=== PATIENT | female | born 1985 | race Caucasian/White ===

== ENCOUNTER 2024-01-19 19:23 | Emergency (ER) | payer SELFPAY ==
[~2024-01-19] VITALS: Ht 165.1 cm; Wt 70.3 kg
[2024-01-19 19:30] VITALS: BP_SYST 133; PULSE 77; RESP 18; TEMP 98.7; O2SAT 100
[2024-01-19 21:07] LABS: BASOPHILS # (AUTO) 0.1 K/uL (0.0-0.2); BASOPHILS % (AUTO) 0.7 % (0.0-2.0); EOSINOPHILS # (AUTO) 0.1 K/uL (0.0-0.4); EOSINOPHILS % (AUTO) 1.1 % (0.0-4.0); HEMATOCRIT 40.3 % (36-48); HEMOGLOBIN 13.9 g/dL (12.0-16.0); LYMPHOCYTES # (AUTO) 3.2 K/uL (1.0-5.5); LYMPHOCYTES % (AUTO) 32.4 % (20.5-51.5); MEAN CORPUSCULAR HEMOGLOBIN 29 pg (27-31); MEAN CORPUSCULAR HGB CONC 35 % (32-36); MEAN CORPUSCULAR VOLUME 84 fL (79.0-98.0); MONOCYTES # (AUTO) 0.8 K/uL (0.0-1.0); MONOCYTES % (AUTO) 8.3 % (1.7-9.3); NEUTROPHILS # (AUTO) 5.7 K/uL (1.8-7.7); NEUTROPHILS % (AUTO) 57.5 % (40.0-70.0); PLATELET COUNT (AUTO) 301 K/uL (130-430); RED CELL DISTRIBUTION WIDTH 12.4 % (9.0-15.0); WHITE BLOOD COUNT (AUTO) 9.9 K/uL (4.8-10.8)
[2024-01-19 21:20] LABS: CALCIUM 8.6 mg/dL (8.4-11.0); CREATININE 0.59 mg/dL (0.55-1.30); POTASSIUM 4.2 mmol/L (3.5-5.1); SERUM HCG (QUALITATIVE) NEGATIVE (NEGATIVE)
[2024-01-19] MEDS ORDERED: CEPH-548 PO (21:47)
== END 2024-01-19 22:07 | disposition home or self-care (01) ==
LOC: SED 19:23
DX: I88.9 Nonspecific lymphadenitis, unspecified (principal); Z79.899 Other long term (current) drug therapy
CPT/HCPCS: 36415; 80048; 83605; 84703; 85025; 99283

== ENCOUNTER 2024-01-21 12:34 | Emergency (ER) | payer SELFPAY ==
[~2024-01-21] VITALS: Ht 165.1 cm; Wt 70.3 kg
[~2024-01-21 12:34] MED LIST: CEPH-548 PO
[2024-01-21 12:42] VITALS: BP_SYST 133; PULSE 85; RESP 18; TEMP 98.3; O2SAT 98
[2024-01-21 13:44] LABS: BILIRUBIN,URINE NEGATIVE (NEGATIVE); BLOOD, URINE NEGATIVE (NEGATIVE); CLARITY/URINE CLEAR (CLEAR); COLOR,URINE YELLOW (YELLOW); GLUCOSE,URINE NEGATIVE (NEGATIVE); KETONES,URINE NEGATIVE (NEGATIVE); LEUKOCYTE ESTERASE ,URINE TRACE (NEGATIVE); NITRITE, URINE NEGATIVE (NEGATIVE); PH,URINE 5.5 (5.0-8.0); PROTEIN URINE NEGATIVE (NEGATIVE); UROBILINOGEN,URINE 0.2 (0.2-1.0)
[2024-01-21 14:11] LABS: BACTERIA,URINE FEW /HPF (None Seen); RBC,URINE 0-3 /HPF (0-3); YEAST,URINE Few /HPF (None Seen)
[2024-01-21] MEDS ORDERED: CLOT45CR29 VG (18:04)
[2024-01-21 18:18] VITALS: BP_SYST 133; PULSE 85; RESP 18; TEMP 98.3; O2SAT 98
== END 2024-01-21 18:22 | disposition home or self-care (01) ==
LOC: SED 12:34
DX: B37.31 Acute candidiasis of vulva and vagina (principal); R30.9 Painful micturition, unspecified; Z79.899 Other long term (current) drug therapy
CPT/HCPCS: 81000; 81001; 81015; 81025; 87086; 99283